=== PATIENT | male | born 1995 | race Caucasian/White ===

== ENCOUNTER 2021-01-14 10:46 | Emergency (ER) | payer OTHER ==
[~2021-01-14] VITALS: Ht 182.9 cm; Wt 87.5 kg
[2021-01-14] MEDS ORDERED: IBU600 MG PO (15:48)
[2021-01-14] MEDS ORDERED: CIPRO500 MG PO (15:48)
[2021-01-14] MEDS ORDERED: INTESTINEX680 M1 PO (15:48)
== END 2021-01-14 16:00 | disposition home or self-care (01) ==
LOC: ER 10:46
DX: N39.0 Urinary tract infection, site not specified (principal); R10.84 Generalized abdominal pain; R31.0 Gross hematuria